=== PATIENT | female | born 1990 | race Caucasian/White ===

== ENCOUNTER 2016-11-17 12:08 | Emergency (ER) | payer OTHER ==
[~2016-11-17] VITALS: Ht 160 cm; Wt 60.0 kg
[~2016-11-17 12:08] MED LIST: BEN50 PO; FLUC150T41 PO; GENT30CR TOP; HYDR-3498 PO; NITR-58 PO; ONDA4TAB8 PO; PHEN-537 PO; PRED20TA PO; PREN1COM10 PO; TYL500 PO
[2016-11-17 12:19] VITALS: Ht 160 cm; Wt 60.0 kg
--- NOTE | 2016-11-17 13:08 | RADRPT ---
PROCEDURE: There is Save CLINICAL INDICATION: pain TECHNIQUE: AP, lateral and oblique views of the right wrist were performed. COMPARISON: No prior studies are available for comparison. FINDINGS: There is no evidence acute fractures or dislocations. The bony mineralization is normal. No focal bony blastic or lytic lesions. No erosions. The soft tissues are unremarkable. IMPRESSION: Negative right wrist series. RPTAT:AAJJ Physician Ariadne Date Time Electronically viewed and signed by Emma Casillas Physician on 11/17/2016 13:08 /
[2016-11-17] MEDS ORDERED: IBUP400T22 PO (13:13)
--- NOTE | 2016-11-17 13:17 | ERD ---
ER Documentation Chief Complaint Date/Time DATE: 11/17/16 TIME: 13:15 Chief Complaint rt wrist pain x 2 months HPI This 26-year-old female complains of pain in her right wrist for last 2 months. She denies any history of trauma. She does use her hands and wrists a lot at home. The pain is on the dorsum of her right thumb. She has no restricted range of motion weakness or redness or bleeding. ROS All systems reviewed and are negative except as per history of present illness. Medications Home Meds Active Scripts Ibuprofen* (Ibuprofen*) 400 Mg Tablet, 400 MG PO Q6H Y for PAIN, #20 TAB Prov:DIVYA DICKINSON MD 11/17/16 Ondansetron Hcl* (Zofran*) 4 Mg Tablet, 4 MG PO Q6H for NAUSEA AND/OR VOMITING, #30 TAB Prov:MILTON SOTELO 03/21/16 Acetaminophen* (Tylenol*) 500 Mg Tab, 1000 MG PO Q4H Y for PAIN AND OR ELEVATED TEMP for 3 Days, TAB Prov:MILTON SOTELO 03/21/16 Fluconazole* (Fluconazole*) 150 Mg Tablet, 150 MG PO ONCE, #1 TAB Prov:ALBERT STILL PA-C 11/27/15 Diphenhydramine Hcl* (Benadryl*) 50 Mg Cap, 50 MG PO Q6 Y for ITCHING, #30 CAP Prov:ALBERT STILL PA-C 11/27/15 Prednisone* (Prednisone*) 20 Mg Tab, 40 MG PO DAILY for 4 Days, TAB Prov:ALBERT STILL PA-C 11/27/15 Phenazopyridine Hcl* (Pyridium*) 100 Mg Tab, 100 MG PO TID Y for PAIN, #3 TAB Prov:KOFFI LIN I. LINK 11/22/15 Nitrofurantoin Monohyd Macrocr* (Macrobid*) 100 Mg Capsr, 100 MG PO BID for 5 Days, CAP Prov:KOFFI LIN I. TIME ANALYSIS CLERK 11/22/15 Gentamicin Sulfate* (Gentamicin Sulfate* Oint) 0.1% - 15 gm Oint, 1 APPLIC TOP QID for 7 Days, TUB OPTHO OINTMENT Prov:DIVYA DICKINSON MD 06/11/15 Hydrocodone Bit-Acetaminophen* ([place]*) 5-325 Mg Tab, 1 TAB PO Q6 Y for PAIN, # 7 TAB Prov:ISMAEL ALEJANDRE 04/26/15 Reported Medications Cmb#95/Iron/Fa/Dha ( + DHA COMBO PACK) 1 Each Combo..pkg, 1 EACH PO DAILY 12/28/12 Allergies Allergies: Coded Allergies: No Known Drug Allergies (Verified Allergy, Unknown, 11/22/15) PMhx/Soc History of Surgery: No Anesthesia Reaction: No Hx Neurological Disorder: No Hx Respiratory Disorders: No Hx Cardiac Disorders: No Hx Psychiatric Problems: No Hx Miscellaneous Medical Probl: No Hx Alcohol Use: No Hx Substance Use: No Hx Tobacco Use: No Physical Exam Vitals Vital Signs Date Time Temp Pulse Resp B/P Pulse Ox O2 Delivery O2 Flow Rate FiO2 11/17/16 12:19 98.1 85 18 108/58 98 Physical Exam Const: [] Alert, [id number] Head: Atraumatic Eyes: Normal Conjunctiva ENT: Normal External Ears, Nose and Mouth. Neck: Full range of motion..~ No meningismus. Resp: Clear to auscultation bilaterally Cardio: Regular rate and rhythm, no murmurs Abd: Soft, non tender, non distended. Normal bowel sounds Skin: No petechiae or rashes Back: No midline or flank tenderness Ext: No cyanosis, or edema. There is some tenderness in the base of the right thumb with a positive Cameron's test. There is no appreciable snuffbox tenderness no effusion, deformities, restricted range of motion weakness per Neur: Awake and alert Psych: Normal Mood and Affect Procedures/MDM X-ray Wrist 3V Interpreted by me: Scaphoid: [Normal] Bones: [No fracture] Joints: [No dislocation] Foreign body: [None]. Impression-normal right wrist x-ray Patient has signs and symptoms of right thumb extensor tendinitis without evidence of fracture, dislocation, deficits, bacterial infection. Patient was placed in a right thumb spica splint. Splint Assessment: Neurovascularly intact post splint placement with good fit. Patient will be discharged home instructions for ice, and a prescription for ibuprofen. Patient was advised to follow-up with primary doctor, recommend use of splint for 2 weeks and follow- up with orthopedist for persistent pain. She may need authorization sedation from her primary doctor for orthopedist visit Departure Diagnosis: Primary Impression: Tendonitis Condition: Stable Patient Instructions: Tendonitis Additional Instructions: SARAH MATA. Examines normal hoy. Cheque otro vez con henson doctor primario en el proximo handley or regresa para mas o nueva simptomas. USE SPLIMNT PARA 2 SEMANAS. DIVYA DICKINSON MD Nov 17, 2016 13:17
[2016-11-17] MEDS ORDERED: TYL500 PO (13:32)
== END 2016-11-17 13:30 | disposition home or self-care (01) ==
LOC: FTE 12:08
DX: M77.8 Other enthesopathies, not elsewhere classified (principal)
CPT/HCPCS: 29130; 73110; Z7502

== ENCOUNTER 2017-06-25 16:11 | Emergency (ER) | payer OTHER ==
[~2017-06-25] VITALS: Wt 56.8 kg
[~2017-06-25 16:11] MED LIST changes: +IBUP400T22 PO
[2017-06-25] MEDS ORDERED: ONDANSETRON 4 MG INJ IV STA (17:43)
[2017-06-25] MEDS ORDERED: SOD CHLORIDE 0.9% 1,000 ML IV ONE (18:00)
[2017-06-25] MEDS ORDERED: SOD CHLORIDE 0.9% 100 ML ONE (19:29)
[2017-06-25] MEDS ORDERED: IOHEXOL 300MG/ML 150 ML BTL ONE (19:29)
--- NOTE | 2017-06-25 19:50 | ERD ---
ER Documentation Chief Complaint Chief Complaint N/V S/P ANTIBX HPI 27-year-old female presenting 4 days status post wisdom tooth removal complaining of nausea vomiting 3-4 hours. 10 episodes described as brown and nonbilious. Has not taken any medications to relieve the symptoms. Is taking acetaminophen with codeine and amoxicillin for the past 4 days with adequate relief of postop symptoms. Describes pharyngitis and dysphagia. Denies dyspnea , difficulty breathing, chest pain, headache, neck stiffness, fever, chills. No medical history. Patient has no other complaints and describes no other associated manifestations. ROS All systems reviewed and are negative except as per history of present illness. Medications Home Meds Active Scripts Acetaminophen* (Tylenol*) 500 Mg Tab, 500 MG PO Q4H Y for MILD PAIN LEVEL 1-3, # 20 TAB Prov:DIVYA DICKINSON MD 11/17/16 Ibuprofen* (Ibuprofen*) 400 Mg Tablet, 400 MG PO Q6H Y for PAIN, #20 TAB Prov:DIVYA DICKINSON MD 11/17/16 Ondansetron Hcl* (Zofran*) 4 Mg Tablet, 4 MG PO Q6H for NAUSEA AND/OR VOMITING, #30 TAB Prov:MILTON SOTELO 03/21/16 Acetaminophen* (Tylenol*) 500 Mg Tab, 1000 MG PO Q4H Y for PAIN AND OR ELEVATED TEMP for 3 Days, TAB Prov:MILTON STOELO 03/21/16 Fluconazole* (Fluconazole*) 150 Mg Tablet, 150 MG PO ONCE, #1 TAB Prov:ALBERT STILL PA-C 11/27/15 Diphenhydramine Hcl* (Benadryl*) 50 Mg Cap, 50 MG PO Q6 Y for ITCHING, #30 CAP Prov:ALBERT STILL PA-C 11/27/15 Prednisone* (Prednisone*) 20 Mg Tab, 40 MG PO DAILY for 4 Days, TAB Prov:ALBERT STILL PA-C 11/27/15 Phenazopyridine Hcl* (Pyridium*) 100 Mg Tab, 100 MG PO TID Y for PAIN, #3 TAB Prov:KOFFI LIN NP 11/22/15 Nitrofurantoin Monohyd Macrocr* (Macrobid*) 100 Mg Capsr, 100 MG PO BID for 5 Days, CAP Prov:LINKOFFI LAGUNAS NP 11/22/15 Gentamicin Sulfate* (Gentamicin Sulfate* Oint) 0.1% - 15 gm Oint, 1 APPLIC TOP QID for 7 Days, TUB OPTHO OINTMENT Prov:DIVYA DICKINSON MD 06/11/15 Hydrocodone Bit-Acetaminophen* ([place]*) 5-325 Mg Tab, 1 TAB PO Q6 Y for PAIN, # 7 TAB Prov:ISMAEL ALEJANDRE 04/26/15 Reported Medications Cmb#95/Iron/Fa/Dha ( + DHA COMBO PACK) 1 Each Combo..pkg, 1 EACH PO DAILY 12/28/12 Allergies Allergies: Coded Allergies: No Known Drug Allergies (Verified Allergy, Unknown, 11/22/15) PMhx/Soc Medical and Surgical Hx: pt denies Medical Hx History of Surgery: Yes (WIDSOM TEETH 2017) Anesthesia Reaction: No Hx Neurological Disorder: No Hx Respiratory Disorders: No Hx Cardiac Disorders: No Hx Psychiatric Problems: No Hx Miscellaneous Medical Probl: No Hx Alcohol Use: No Hx Substance Use: No Hx Tobacco Use: No Smoking Status: Never smoker Physical Exam Vitals Vital Signs Date Time Temp Pulse Resp B/P Pulse Ox O2 Delivery O2 Flow Rate FiO2 06/25/17 16:13 99.6 108 20 124/73 100 Physical Exam Const: Well-appearing 27-year-old female in no acute distress Head: Atraumatic Eyes: Normal Conjunctiva. PERRLA, EOMI bilaterally. There is no nystagmus, or jaundice. ENT: Trismus. Oropharynx not well visualized. Neck: Full range of motion..~ No meningismus. Resp: Clear to auscultation bilaterally Cardio: Regular rate and rhythm, no murmurs. Cap refill less than 2 seconds. Abd: Soft, non tender, non distended. Normal bowel sounds. No McBurney's point tenderness. Negative Madison sign. Skin: No petechiae or rashes Back: No midline or flank tenderness Ext: No cyanosis, or edema Neur: Awake and alert Psych: Normal Mood and Affect Result Diagram: 06/25/17180406/25/17 180 Results 24 hrs Laboratory Tests Test 06/25/17 18:00 06/25/17 18:05 Urine Color YELLOW Urine Clarity CLEAR Urine pH 7.0 Urine Specific [place] 1.020 Urine Ketones 2+mg/dL Urine Nitrite NEGATIVEmg/dL Urine Bilirubin NEGATIVEmg/dL Urine Urobilinogen 2+mg/dL Urine Leukocyte Esterase NEGATIVELeu/ul Urine Hemoglobin NEGATIVEmg/dL Urine Glucose NEGATIVEmg/dL Urine Total Protein NEGATIVEmg/dl Urine Test NEGATIVE White Blood Count 8.910^3/ul Red Blood Count 4.6310^6/ul Hemoglobin 13.0g/dl Hematocrit 39.7% Mean Corpuscular Volume 85.7fl Mean Corpuscular Hemoglobin 28.1pg Mean Corpuscular Hemoglobin Concent 32.7g/dl Red Cell Distribution Width 13.2% Platelet Count 62784^3/UL Mean Platelet Volume 9.3fl Neutrophils % 80.3% Lymphocytes % 13.1% Monocytes % 4.5% Eosinophils % 1.5% Basophils % 0.2% Nucleated Red Blood Cells % 0.0/100WBC Neutrophils # 7.210^3/ul Lymphocytes # 1.210^3/ul Monocytes # 0.410^3/ul Eosinophils # 0.110^3/ul Basophils # 0.010^3/ul Nucleated Red Blood Cells # 0.010^3/ul Prothrombin Time 13.9Sec Prothrombin Time Ratio 1.1 INR International Normalized Ratio 1.07 Activated Partial Thromboplast Time 31.5Sec Sodium Level 141mmol/L Potassium Level 4.3mmol/L Chloride Level 103mmol/L Carbon Dioxide Level 26mmol/L Anion Gap 16 Blood Urea Nitrogen 8mg/dl Creatinine 0.55mg/dl Glucose Level 87mg/dl Calcium Level 9.0mg/dl Total Bilirubin 0.5mg/dl Direct Bilirubin 0.00mg/dl Indirect Bilirubin 0.5mg/dl Aspartate Amino Transf (AST/SGOT) 173IU/L Alanine Aminotransferase (ALT/SGPT) 357IU/L Alkaline Phosphatase 181IU/L Total Protein 7.7g/dl Albumin 4.7g/dl Globulin 3.00g/dl Albumin/Globulin Ratio 1.56 Current Medications Medications (Trade) Dose Ordered Sig/Mnae Route PRN Reason Start Time Stop Time Status Last Admin Dose Admin Sodium Chloride (NS) 1,000 ml @ 1,000 mls/hr Q1H ONCE IV 06/25/17 18:00 06/25/17 18:59 DC 11/8/17 18:37 Ondansetron HCl (Zofran Inj) 4 mg ONCE STAT IV 06/25/17 17:43 06/25/17 17:44 DC 06/25/17 18:37 IV Flush 10 ml 10 ml STK-MED ONCE .ROUTE 06/25/17 19:29 06/25/17 19:30 DC 06/25/17 19:33 Sodium Chloride (NS) 100 ml @ ud STK-MED ONCE .ROUTE 06/25/17 19:29 06/25/17 19:30 DC 06/25/17 19:33 Iohexol (Omnipaque 300mg/ ml) 150 ml STK-MED ONCE .ROUTE 06/25/17 19:29 06/25/17 19:30 DC 06/25/17 19:33 Procedures/MDM 27-year-old female presenting with a chief complaints of pharyngitis nausea and vomiting 4 days status post wisdom tooth removal. Denies fever or chills. Labs were obtained. Labs revealed increased liver enzymes. No leukocytosis. I have spoken to my attending about this case Dr. Gutierrez. Ultrasound and CT have been ordered. This case will be handed off to CHAPIN Pham. Departure Diagnosis: Primary Impression: Nausea and vomiting Additional Instructions: Is being handed off to CHAPIN Pham MICHAEL PA-C Jun 25, 2017 19:50
[2017-06-25] MEDS ORDERED: ONDA4TAB14 PO (19:51)
--- NOTE | 2017-06-25 20:04 | RADRPT ---
PROCEDURE: US Abdomen. CLINICAL INDICATION: Abdominal pain. Nausea and vomiting. History of cholecystectomy. TECHNIQUE: Multiple real-time images were acquired of the patient's right upper quadrant utilizing a high resolution transducer. The images were reviewed on a high-resolution PACS workstation. COMPARISON: 04/26/2015 FINDINGS: The liver demonstrates increased echogenicity and size and no focal lesions are seen. The liver kahlil ures 17.5 cm in size. The gallbladder has been removed. No common bile duct dilatation is seen. No intrahepatic biliary dilatation is seen. The common bile duct measures 2.3 mm in maximal dimension . The visualized portions of the pancreas are unremarkable. No free fluid is identified. The right kidney is of normal size, and demonstrate normal echogenicity and morphology. The right k idney measures cm. There are is no dilatation of the right collecting system. There are no perine phric fluid collections. There are no areas of increased echogenicity to suggest nephrolithiasis. IMPRESSION: 1. Fatty infiltration of the liver. 2. Gallbladder not identified consistent with the clinical history of a prior cholecystectomy. RPTAT: HPNM Physician Amina Date Time Electronically viewed and signed by Physician Amina on 06/25/2017 20:04 /
--- NOTE | 2017-06-25 20:08 | RADRPT ---
PROCEDURE: CT Neck with contrast. CLINICAL INDICATION: Dysphasia. TECHNIQUE: The study was performed utilizing a multislice multidetector CT scanner. Direct spiral 1 mm axial sections were obtained through the neck with the use of with the use of intravenous contr ast material. 80 cc of Omnipaque-300 was utilized without complication. 1 or more of the following dose reduction techniques were utilized: Automated exposure control, adjustment of the mA and/or kV according to patient's size, iterative reconstruction technique. Coronal and sagittal reformations were obtained. The images were reviewed on a PACS workstation. RADIATION DOSE: CTDIvol: 9.3 mGyDLP: AP 224.5 mGy-cm COMPARISON: No prior studies are available for comparison. FINDINGS: The nasopharynx, oropharynx and hypopharynx are normal in appearance. There is no tongue base mass. The larynx is normal in appearance. The parotid, submandibular and thyroid glands are normal in a ppearance. There is mild prominence of the bilateral palatine tonsils. There is no evidence of hypo enhancing fluid collection. No enlarged cervical lymph nodes are seen. The vascular structures are normal. The paranasal sinuses and orbits are normal. Limited visualization of the intracranial con tents is unremarkable. There are mild degenerative changes of the cervical spine. The lung apices are normal in appearance. IMPRESSION: 1. Mild prominence of the bilateral volt AP, flows, suggestive of tonsillitis. No evidence of hypo e nhancing fluid collection to suggest peritonsillar abscess at this time. 2. Otherwise, normal CT of the neck soft tissues. No mass lesion, lymphadenopathy or abnormal fluid collection. RPTAT: HGAS .Conor Olsen MD, Date Time Electronically viewed and signed by .Conor Olsen MD, on 06/25/2017 20:08 .S/
[2017-06-25] MEDS ORDERED: AMOX1TAB9 PO (20:20)
[2017-06-25 20:29] VITALS: BP 107/61; PULSE 78; RESP 18; TEMP 98.2
== END 2017-06-25 20:30 | disposition home or self-care (01) ==
LOC: FTE 16:11
DX: R11.2 Nausea with vomiting, unspecified (principal); R10.9 Unspecified abdominal pain
CPT/HCPCS: 70491; 76705; 80053; 81003; 84703; 85025; 85610; 85730; 96374; J2405; J7030; Q9967; Z7502; Z7610

== ENCOUNTER 2018-01-13 14:19 | Emergency (ER) | END 2018-01-13 17:26 | disposition home or self-care (01) ==

== ENCOUNTER 2018-02-10 20:39 | Emergency (ER) | END 2018-02-10 23:39 | disposition home or self-care (01) ==

== ENCOUNTER 2018-09-08 15:53 | Inpatient (IN) | payer OTHER ==
[~2018-09-08] VITALS: Ht 157.5 cm; Wt 75.7 kg
[~2018-09-08 15:53] MED LIST changes: +ACET500C5 PO; +AMOX1TAB9 PO; +FAMO-96 PO; +IBUP-1541 PO; +IBUP-1542 PO; -IBUP400T22 PO; +ONDA4TAB14 PO
[2018-09-08 16:00] VITALS: Ht 157.5 cm; Wt 75.7 kg
[2018-09-08] MEDS ORDERED: LEVO112T57 PO (16:26)
[2018-09-08] MEDS ORDERED: URSO300C3 PO (16:26)
--- NOTE | 2018-09-08 17:33 | PN ---
Triage Information Date/Time September 08, 2018 Reason for visit: Sent in from clinic for body itching and possible cholestasis, also complains of uterine tightening Weeks of Gestation 36 /Para Date of 4 para 3 Diabetes: none Hypertention: none Objective Vital signs are stable Heart Rate: 140's Heart Rate Comments Reactive Contractions: < 5 Minutes Apart Exam Cervix appeared to be short and closed Results/Medications Result Diagram: 09/08/18 1616 Results 24 hrs Laboratory Tests Test 09/08/18 16:16 Sodium Level 134 L Potassium Level 3.7 Chloride Level 103 Carbon Dioxide Level 22 Anion Gap 9 Blood Urea Nitrogen 7 Creatinine 0.54 Est Glomerular Filtrat Rate mL/min > 60 Glucose Level 118 Calcium Level 9.0 Total Bilirubin 0.2 Direct Bilirubin 0.00 Indirect Bilirubin 0.2 Aspartate Amino Transf (AST/SGOT) 23 Alanine Aminotransferase (ALT/SGPT) 20 Alkaline Phosphatase 152 H Total Protein 6.4 Albumin 3.4 Globulin 3.00 Albumin/Globulin Ratio 1.13 Imaging Results Normal biophysical profile. Assessment/Plan Patient received 1 dose of subcutaneous terbutaline for uterine contractions Does not have elevated enzymes Bile acids are drawn Patient is going to receive steroids Will follow patient closely and evaluate patient following day for contractions and receiving the second dose of betamethasone SHIRLENE RUIZ MD Sep 08, 2018 17:33
[2018-09-08] MEDS ORDERED: TERBUTALINE 1 ML ONE (17:46)
[2018-09-08] MEDS ORDERED: LACTATED RINGER'S 1,000 ML IV ONE (18:00)
[2018-09-08] MEDS ORDERED: TERBUTALINE 1 MG/ML INJ SC ONE ×2 (18:00→20:30)
[2018-09-08] MEDS ORDERED: BETAMET NA PHOS/AC(6 MG/ML) 2 ML INJ SYG IM ONE (18:30)
[2018-09-08] MEDS: LACTATED RINGER'S 1,000 ML IV SCH ×2 (19:13→22:56)
[2018-09-08] MEDS ORDERED: LACTATED RINGER'S 1,000 ML IV PRN (22:27)
[2018-09-08] MEDS ORDERED: OXYTOCIN 30 UNITS/LR 500 ML IV PRN (22:30)
[2018-09-08] MEDS ORDERED: OXYTOCIN 30 UNITS/LR 500 ML IV SCH ×2 (22:30)
[2018-09-08] MEDS ORDERED: IBUPROFEN 600 MG TAB PO PRN (22:30)
[2018-09-08] MEDS ORDERED: METHYLERGONOVINE 0.2 MG INJ IM PRN (22:30)
[2018-09-08] MEDS ORDERED: MISOPROSTOL 200 MCG TAB PR PRN (22:30)
[2018-09-08] MEDS ORDERED: LIDOCAINE 1% (MPF) 30 ML INJ INJ PRN (22:30)
[2018-09-08] MEDS ORDERED: BUTORPHANOL 2 MG INJ IV PRN (22:30)
[2018-09-08] MEDS ORDERED: CARBOPROST 250 MCG INJ IM PRN (22:30)
[2018-09-08] MEDS: NIFEdipine 10 MG CAP PO SCH (23:59)
[2018-09-09] MEDS: NIFEdipine 10 MG CAP PO SCH ×3 (06:13→18:10)
[2018-09-09] MEDS: LACTATED RINGER'S 1,000 ML IV SCH ×2 (07:10→16:06)
[2018-09-09] MEDS ORDERED: LEVOTHYROXINE 112 MCG TAB PO SCH (07:30)
--- NOTE | 2018-09-09 07:35 | TRIAGE ---
OB Triage Datetime Report Generated by CPN: 09/09/2018 07:35 Datetime: 09/09/2018 07:00 Stage of : Labor Labor Evaluation Frequency: Irregular Monitor Mode: External Duration (sec)2399: 40-60 Quality: Mild Pattern: Normal: <= 5 Contractions in 10 Minutes Resting Tone [place]: Relaxed Heart Rate FHR Baseline Rate: 135 Monitor Mode: External US FHR Baseline Changes: No Baseline Change Variability: Moderate 6-25 bpm Accelerations: 15X15 Decelerations: None Category: Category I Datetime: 09/09/2018 06:00 Stage of : Labor Labor Evaluation Frequency: Irregular Monitor Mode: External Duration (sec)2399: 40-110 Quality: Mild Pattern: Normal: <= 5 Contractions in 10 Minutes Resting Tone [place]: Relaxed Heart Rate FHR Baseline Rate: 135 Monitor Mode: External US FHR Baseline Changes: No Baseline Change Variability: Moderate 6-25 bpm Accelerations: 15X15 Decelerations: None Category: Category I Datetime: 09/09/2018 05:00 Stage of : Labor Labor Evaluation Frequency: Irregular Monitor Mode: External Duration (sec)2399: 40-90 Quality: Mild Pattern: Normal: <= 5 Contractions in 10 Minutes Resting Tone [place]: Relaxed Heart Rate FHR Baseline Rate: 135 Monitor Mode: External US Variability: Moderate 6-25 bpm Accelerations: 15X15 Decelerations: None Category: Category I Datetime: 09/09/2018 04:00 Stage of : Labor Labor Evaluation Frequency: Irregular Monitor Mode: External Duration (sec)2399: 40-150 Quality: Mild Pattern: Normal: <= 5 Contractions in 10 Minutes Resting Tone [place]: Relaxed Heart Rate FHR Baseline Rate: 140 Monitor Mode: External US Variability: Moderate 6-25 bpm Accelerations: 15X15 Decelerations: None Category: Category I Datetime: 09/09/2018 03:00 Stage of : Labor Labor Evaluation Frequency: Irregular Monitor Mode: External Duration (sec)2399: 40-170 Quality: Mild Pattern: Normal: <= 5 Contractions in 10 Minutes Resting Tone [place]: Relaxed Heart Rate FHR Baseline Rate: 150 Monitor Mode: External US Variability: Moderate 6-25 bpm Accelerations: 15X15 Decelerations: None Category: Category I Datetime: 09/09/2018 02:00 Stage of : Labor Labor Evaluation Frequency: Irregular Monitor Mode: External Duration (sec)2399: 40-60 Quality: Mild Pattern: Normal: <= 5 Contractions in 10 Minutes Resting Tone [place]: Relaxed Heart Rate FHR Baseline Rate: 155 Monitor Mode: External US Variability: Moderate 6-25 bpm Accelerations: 15X15 Datetime: 09/09/2018 01:00 Stage of : Labor Labor Evaluation Frequency: Irregular Monitor Mode: External Duration (sec)2399: 40-70 Quality: Mild Pattern: Normal: <= 5 Contractions in 10 Minutes Resting Tone [place]: Relaxed Heart Rate FHR Baseline Rate: 150 Monitor Mode: External US FHR Baseline Changes: No Baseline Change Variability: Moderate 6-25 bpm Accelerations: 15X15 Datetime: 09/09/2018 00:00 Stage of : Labor Labor Evaluation Frequency: Irregular Monitor Mode: External Duration (sec)2399: 40-90 Quality: Mild Pattern: Normal: <= 5 Contractions in 10 Minutes Resting Tone [place]: Relaxed Heart Rate FHR Baseline Rate: 150 Monitor Mode: External US FHR Baseline Changes: No Baseline Change Variability: Moderate 6-25 bpm Accelerations: 15X15 Decelerations: None Category: Category I Datetime: 09/08/2018 23:00 Stage of : Labor Labor Evaluation Frequency: 1.5-5 Monitor Mode: External Duration (sec)2399: 40-90 Quality: Mild Pattern: Normal: <= 5 Contractions in 10 Minutes Resting Tone [place]: Relaxed Heart Rate FHR Baseline Rate: 150 Monitor Mode: External US FHR Baseline Changes: No Baseline Change Variability: Moderate 6-25 bpm Accelerations: 15X15 Decelerations: None Category: Category I Datetime: 09/08/2018 22:00 Stage of : OB Triage Labor Evaluation Frequency: Irregular Monitor Mode: External Duration (sec)2399: 40-100 Quality: Mild Pattern: Normal: <= 5 Contractions in 10 Minutes Resting Tone [place]: Relaxed Heart Rate FHR Baseline Rate: 150 Monitor Mode: External US Variability: Moderate 6-25 bpm Accelerations: 15X15 Decelerations: None Category: Category I Datetime: 09/08/2018 21:41 Monitor Mode: Palpation Resting Tone [place]: Relaxed Datetime: 09/08/2018 21:40 Stage of : OB Triage Vaginal Exam Dilatation (cms): 1.5 Effacement (%): 50 Station: -3 Exam By: MIGUEL Decker Vaginal Bleeding: None Cervix, Consistency: Soft Cervix, Position: Posterior Presentation 'A': Cephalic Datetime: 09/08/2018 21:00 Stage of : OB Triage Labor Evaluation Frequency: Irregular Monitor Mode: External Duration (sec)2399: 50-100 Quality: Mild Pattern: Normal: <= 5 Contractions in 10 Minutes Resting Tone [place]: Relaxed Heart Rate FHR Baseline Rate: 145 Monitor Mode: External US Variability: Moderate 6-25 bpm Accelerations: 15X15 Decelerations: None Category: Category I Datetime: 09/08/2018 20:00 Stage of : OB Triage Labor Evaluation Frequency: x6 Monitor Mode: External Duration (sec)2399: 60-120 Quality: Mild Pattern: Normal: <= 5 Contractions in 10 Minutes Resting Tone [place]: Relaxed Heart Rate FHR Baseline Rate: 140 Monitor Mode: External US Variability: Moderate 6-25 bpm Accelerations: 15X15 Decelerations: Variable Category: Category II Datetime: 09/08/2018 19:13 Stage of : OB Triage Temperature Route: Oral Pain Assessment Pain Scale: 2 Pain Presence: Intermittent Pain Type: Cramping; Pressure Pain Location: Abdomen Pain Relief Measures: Comfort Measures Datetime: 09/08/2018 19:03 Assessment Type: Triage Maternal Assessment Level of Consciousness: Fully Conscious DTR's/Clonus: DTRs 2+; No Clonus Headache: Denies Blurred Vision: No Respiratory Effort: Unlabored; Regular Rhythm; Equal Expansion Breath Sounds, Left: Clear and Equal Breath Sounds, Right: Clear and Equal Nausea/Vomiting: Denies RUQ Epigastric Pain: Denies Lower Extremities Edema: None Degree: None Upper Extremities Edema: None Degree: None Facial Edema: None Fall Risk Assessment History of Falling: (0) No Secondary Diagnosis: (0) No Ambulatory Aid: (0) Bedrest/Nurse Assist IV Therapy: (0) No Gait: (0) Normal/Bedrest/Immobile Mental Status: (0) Oriented to Own Ability Fall Score: 0 Fall Risk Score Definition: No Risk: No action required Datetime: 09/08/2018 18:28 Labor Evaluation Frequency: 5-6.5 Monitor Mode: External Duration (sec)2399: 60-100 Quality: Mild Pattern: Normal: <= 5 Contractions in 10 Minutes Resting Tone [place]: Relaxed Heart Rate FHR Baseline Rate: 130 Monitor Mode: External US FHR Baseline Changes: No Baseline Change Variability: Moderate 6-25 bpm Accelerations: 15X15 Decelerations: None Category: Category I Pain Presence: None/Denies Datetime: 09/08/2018 17:40 Vaginal Exam Dilatation (cms): 1.0 Effacement (%): 40 Station: -3 Exam By: TM Membrane Status: Intact Datetime: 09/08/2018 17:30 Labor Evaluation Frequency: 5-7 Monitor Mode: External Duration (sec)2399: 60-120 Quality: Mild Pattern: Normal: <= 5 Contractions in 10 Minutes Resting Tone [place]: Relaxed Heart Rate FHR Baseline Rate: 135 Monitor Mode: External US FHR Baseline Changes: No Baseline Change Variability: Moderate 6-25 bpm Accelerations: 15X15 Decelerations: None Category: Category I Pain Presence: None/Denies Datetime: 09/08/2018 16:35 Labor Evaluation Frequency: 4-5 Monitor Mode: External Duration (sec)2399: 60-90 Quality: Mild Pattern: Normal: <= 5 Contractions in 10 Minutes Resting Tone [place]: Relaxed Heart Rate FHR Baseline Rate: 135 Monitor Mode: External US FHR Baseline Changes: No Baseline Change Variability: Moderate 6-25 bpm Accelerations: 15X15 Decelerations: None Category: Category I Pain Presence: None/Denies Pain Assessment Comments: Pt states she feels some tightening with UC but denies pain Datetime: 09/08/2018 16:29 Temperature Route: Oral Datetime: 09/08/2018 16:07 Time of Arrival: 09/08/2018 15:45 EGA: 36.0 Arrived By: Ambulatory Arrived From: Dr. Lopez Chief Complaint: Itching Movement: Present Contractions: Occasional Rupture of Membranes: Denies Vaginal Bleeding: Normal Show Vaginal Discharge: Denies Recent Sexual Intercouse: Yes Abdominal Trauma: Not Applicable Patient Complaints: Other Time Provider Notified: 09/08/2018 17:25 Provider Notified: Initial Plan: CMP, NST, BPP, Terb 0.25mg subQ x1, IV hydration, Beta 12mg IM once Datetime: 09/08/2018 16:05 Assessment Type: Triage Maternal Assessment Level of Consciousness: Fully Conscious DTR's/Clonus: DTRs 2+; No Clonus Headache: Denies Blurred Vision: No Respiratory Effort: Unlabored; Regular Rhythm; Equal Expansion Breath Sounds, Left: Clear and Equal Breath Sounds, Right: Clear and Equal Nausea/Vomiting: Denies RUQ Epigastric Pain: Denies Lower Extremities Edema: None Degree: None Upper Extremities Edema: None Degree: None Facial Edema: None Fall Risk Assessment History of Falling: (0) No Secondary Diagnosis: (0) No Ambulatory Aid: (0) Bedrest/Nurse Assist IV Therapy: (0) No Gait: (0) Normal/Bedrest/Immobile Mental Status: (0) Oriented to Own Ability Fall Score: 0 Fall Risk Score Definition: No Risk: No action required Datetime: 09/08/2018 15:58 Stage of : OB Triage
[2018-09-09] MEDS ORDERED: ACETAMINOPHEN 325 MG TAB ONE (11:54)
[2018-09-09] MEDS ORDERED: ACETAMINOPHEN 325 MG TAB PO ONE (12:00)
[2018-09-09] MEDS ORDERED: URSODIOL 300 MG CAP PO SCH (15:30)
--- NOTE | 2018-09-09 17:37 | HP ---
Date/Time of Note Date/Time of Note DATE: 09/09/18 TIME: 17:35 OB - History Hx of Present Free Text/Dictation 28-year-old female 4 para 3 at 3536 weeks gestation sent in from clinic for body itching She was noticed to have uterine contractions and was kept in for observation Estimated Due Date: Oct 12, 2018 : 4 Para: 3 Care: Good Care Ultrasounds: Normal mid trimester US Obstetrical Complications: Other (Possible cholestasis, contractions) Past Family/Social History * Past Medical, Surgical, Family and Obstetric Histories reviewed from chart. Blood Type: O+ Rubella: immune RPR/VDRL: Negative GBS Status: Unknown HBsAG: Negative OB Admission Exam Physical Exam HEENT: WNL Heart: Rhythm Normal Lungs: Clear, Equal Abdomen: WNL Extremities: Normal Reflexes: Normal Cervical Dilatation: Fingertip Effacement: 0% Station: -3 Membranes: Intact Heart Rate: 140's Accelerations: Accelerations Present Decelerations: No Decelerations Varibility: Marked Contractions on Admission: < 5 Minutes Apart Date/Time Contractions Began: ? Frequency of Contractions: ? Duration: ? Intensity: Mild Last 72 hours Lab Results CBC & BMP 09/08/18 16:16 09/09/18 00:47 Liver Function Test 09/08/18 16:16 Alanine Aminotransferase (ALT/SGPT) 20 Albumin 3.4 Alkaline Phosphatase 152 H Aspartate Amino Transf (AST/SGOT) 23 Direct Bilirubin 0.00 Total Protein 6.4 OB Assessment/Plan Reason for admission: labor Other Assessment: Possible cholestasis 35/36 weeks gestation Other plan: Patient was kept in for observation on p.o. nifedipine SHIRLENE RUIZ MD Sep 09, 2018 17:37
--- NOTE | 2018-09-09 17:40 | DS ---
Date/Time of Note Date/Time of Note DC home on bed and pelvic rest until delivery Follow-up with OB triage in 2 days for antepartum testing DATE: 09/09/18 TIME: 17:37 Obstetrical Discharge Record Final Diagnosis Final Diagnosis: not delivered Other Final Diagnosis contractions and possible cholestasis Complications Labor, Other (Possible cholestasis) Tocolytics: Terbutaline, Other (Nifedipine) Condition on Discharge Physical Assessment Last Vitals: See nurse's note Voiding: Yes Bowel Movement: Yes Breast: Soft, non-tender, Filling Fundus: Other () Abdomen and Incision: Abdomen is soft with present bowel sounds, abdomen is gravid fundal height 36 heart tones are reactive Episiotomy: Not applicable Calf Tenderness: No Patient Condition: Good (Over 24-hour course of observation patient did not have cervical change on p.o. nifedipinem ) SHIRLENE RUIZ MD Sep 09, 2018 17:40
--- NOTE | 2018-09-09 17:43 | PD.PPDC ---
HIDE OR SKIN BUFFER Discharge Instruction Provider Information Physician Information 28-year-old female admitted for contractions Originally was sent in for antepartum testing because of body itching Diagnosis [id number] Final Diagnosis: Erfcw0i contractions Condition [id number] Patient Condition: Hbbdo5v Good (Over 24-hour course of observation patient did not have cervical change on p.o. nifedipinem ) Diet Iweso2Gg Diet: Kwpho3d Resume Regular Diet Activity/Restrictions Dieaw1Fg Activity: Ufwco2z Bedrest May Shower [id number] Restrictions: Lvqxd1y No Exercising No Lifting Nothing in the Vagina Follow-up Follow-up with Physician: 2, Day/Days (In OB triage for antepartum testing) Return to clinic for Comment: Refer back to OB triage for antepartum testing in 2 days Obtain bile acid results SHIRLENE RUIZ MD Sep 09, 2018 17:43
[2018-09-09] MEDS ORDERED: URSO300C21 PO (17:45)
[2018-09-09] MEDS ORDERED: NIFEdipine PO (17:45)
[2018-09-09] MEDS ORDERED: BETAMET NA PHOS/AC(6 MG/ML) 2 ML INJ SYG IM ONE (18:00)
[2018-09-10] MEDS ORDERED: LEVOTHYROXINE 112 MCG TAB PO SCH (06:00)
[2018-09-19] MEDS ORDERED: LEVO112T42 PO (13:10)
[2018-09-19] MEDS ORDERED: IBUP-1542 PO (13:10)
== END 2018-09-09 18:20 | disposition home or self-care (01) | DRG 833 ==
LOC: OBT 15:53 → L-D 15:55 → OBT 22:21
PROVIDERS: ADMIT Obstetrics & Gynecology; ATTEND Obstetrics & Gynecology
DX: O47.1 False labor at or after 37 completed weeks of gestation (principal); Z3A.36 36 weeks gestation of pregnancy
CPT/HCPCS: 36415; 76818; 80053; 81001; 83789; 85025; 85610; 85730; 86592; 86850; 86900; 86901; 87086; 87340; 96360; 96361; 96372; G0463; J0702; J3105; J7120

== ENCOUNTER 2018-09-10 19:58 | Outpatient (CLI) | payer OTHER ==
[~2018-09-10] VITALS: Ht 157.5 cm; Wt 77.3 kg
[~2018-09-10 19:58] MED LIST changes: -ACET500C5 PO; -AMOX1TAB9 PO; -BEN50 PO; -FAMO-96 PO; -FLUC150T41 PO; -GENT30CR TOP; -HYDR-3498 PO; -IBUP-1541 PO; -IBUP-1542 PO; +LEVO112T57 PO; +NIFEdipine PO; -NITR-58 PO; -ONDA4TAB14 PO; -ONDA4TAB8 PO; -PHEN-537 PO; -PRED20TA PO; +URSO300C21 PO; +URSO300C3 PO
[2018-09-10 20:21] VITALS: BP 101/57; PULSE 88; RESP 18
[2018-09-10] MEDS ORDERED: AL HYDROX/MG HYDROX/SIMETH 30 ML CUP PO ONE (20:30)
--- NOTE | 2018-09-10 21:55 | PN ---
Triage Information Date/Time 09/10/18 Reason for visit: DFM Weeks of Gestation 36w2d /Para A2 Diabetes: none Hypertention: none Additional information was admitted for evaluation for possible cholestasis for 3days discharged home yesterday ,suppose to follow up in am but here with DFM had x2 bmz ,placed on ursordil 300mg TID AST and ALT nl today no c/o itching Objective Vital Signs Date Temp Pulse Resp B/P (MAP) Pulse Ox O2 O2 Flow FiO2 Time Delivery Rate 09/10/18 98.7 88 18 101/57 Room Air 20:21 (72) Heart Rate: 140's Heart Rate Comments CAT I Results/Medications Results 24 hrs Laboratory Tests Test 09/10/18 19:55 Urine Color YELLOW Urine Clarity CLEAR Urine pH 7.0 Urine Specific [place] 1.011 Urine Ketones NEGATIVE Urine Nitrite NEGATIVE Urine Bilirubin NEGATIVE Urine Urobilinogen NEGATIVE Urine Leukocyte Esterase NEGATIVE Urine Hemoglobin NEGATIVE Urine Glucose NEGATIVE Urine Total Protein NEGATIVE Imaging Results BPP 8/8 SAIDA 20.6 Disposition: Discharge Assessment/Plan A IUP 36w2d cholestasis borderline polyhydramnios DFM P RTO 2days for f/u SAIDA and antepartum test MEHDI SY MD Sep 10, 2018 21:54
--- NOTE | 2018-09-10 22:51 | TRIAGE ---
OB Triage Datetime Report Generated by CPN: 09/10/2018 22:51 Datetime: 09/10/2018 21:15 Stage of : OB Triage Monitor Mode: External Quality: Mild Pattern: Normal: <= 5 Contractions in 10 Minutes Resting Tone [place]: Relaxed FHR Baseline Rate: 140 Monitor Mode: External US FHR Baseline Changes: No Baseline Change Variability: Moderate 6-25 bpm Accelerations: 15X15 Decelerations: None Category: Category I Datetime: 09/10/2018 20:25 Time of Arrival: 09/10/2018 19:47 EGA: 36.2 Arrived By: Ambulatory Arrived From: Home Chief Complaint: w/ hx PTL and poss cholestasis presents w/ c/o DFM since 1529 Movement: Decreased Contractions: Denies/Absent Rupture of Membranes: Denies Vaginal Bleeding: None Vaginal Discharge: Denies Recent Sexual Intercouse: Denies Abdominal Trauma: Not Applicable Patient Complaints: Other Time Provider Notified: 09/10/2018 20:20 Provider Notified: Dr Flores Initial Plan: EFM,BPP,UA,URINE CULTURE Datetime: 09/10/2018 20:20 Stage of : OB Triage Monitor Mode: External Quality: Mild Pattern: Normal: <= 5 Contractions in 10 Minutes Resting Tone [place]: Relaxed FHR Baseline Rate: 145 Monitor Mode: External US FHR Baseline Changes: No Baseline Change Variability: Moderate 6-25 bpm Accelerations: 15X15 Decelerations: None Category: Category I Comments: Pt states baby now active Pain Scale: 0 Pain Presence: None/Denies Pain Type: N/A Datetime: 09/10/2018 20:01 Stage of : OB Triage Level of Consciousness: Fully Conscious Headache: Denies Blurred Vision: No Nausea/Vomiting: Denies RUQ Epigastric Pain: Denies Facial Edema: None Monitor Mode: External Resting Tone [place]: Relaxed FHR Baseline Rate: 150 Monitor Mode: External US Pain Scale: 0 Pain Presence: None/Denies Pain Type: N/A Datetime: 09/09/2018 18:19 Frequency: occas Monitor Mode: External Duration (sec)2399: 60-130 Quality: Mild Pattern: Normal: <= 5 Contractions in 10 Minutes Resting Tone [place]: Relaxed FHR Baseline Rate: 140 Monitor Mode: External US FHR Baseline Changes: No Baseline Change Variability: Moderate 6-25 bpm Accelerations: 15X15 Decelerations: None Category: Category I Datetime: 09/09/2018 16:59 Frequency: occas Monitor Mode: External Duration (sec)2399: 50-70 Quality: Mild Pattern: Normal: <= 5 Contractions in 10 Minutes Resting Tone [place]: Relaxed FHR Baseline Rate: 145 Monitor Mode: External US FHR Baseline Changes: No Baseline Change Variability: Moderate 6-25 bpm Accelerations: 15X15 Decelerations: None Category: Category I Datetime: 09/09/2018 16:00 Frequency: occas Monitor Mode: External Duration (sec)2399: 50-70 Quality: Mild Pattern: Normal: <= 5 Contractions in 10 Minutes Resting Tone [place]: Relaxed FHR Baseline Rate: 155 Monitor Mode: External US FHR Baseline Changes: No Baseline Change Variability: Moderate 6-25 bpm Accelerations: 15X15 Decelerations: None Category: Category I Datetime: 09/09/2018 15:00 Frequency: occas Monitor Mode: External Duration (sec)2399: 60-80 Quality: Mild Pattern: Normal: <= 5 Contractions in 10 Minutes Resting Tone [place]: Relaxed FHR Baseline Rate: 150 Monitor Mode: External US FHR Baseline Changes: No Baseline Change Variability: Moderate 6-25 bpm Accelerations: 15X15 Decelerations: None Category: Category I Datetime: 09/09/2018 14:00 Frequency: OCCAS Monitor Mode: External Duration (sec)2399: 50-140 Quality: Mild Pattern: Normal: <= 5 Contractions in 10 Minutes Resting Tone [place]: Relaxed FHR Baseline Rate: 145 Monitor Mode: External US FHR Baseline Changes: No Baseline Change Variability: Moderate 6-25 bpm Accelerations: 15X15 Decelerations: None Category: Category I Datetime: 09/09/2018 13:55 Frequency: OCCAS Monitor Mode: External Duration (sec)2399: 60-160 Quality: Mild Pattern: Normal: <= 5 Contractions in 10 Minutes Resting Tone [place]: Relaxed FHR Baseline Rate: 140 Monitor Mode: External US FHR Baseline Changes: No Baseline Change Variability: Moderate 6-25 bpm Accelerations: 15X15 Decelerations: None Category: Category I Datetime: 09/09/2018 13:01 Dilatation (cms): 1.0 Effacement (%): 30 Station: -3 Exam By: Casimiro FINN Datetime: 09/09/2018 13:00 Frequency: OCCAS Monitor Mode: External Duration (sec)2399: 50-120 Quality: Mild Pattern: Normal: <= 5 Contractions in 10 Minutes Resting Tone [place]: Relaxed FHR Baseline Rate: 145 Monitor Mode: External US FHR Baseline Changes: No Baseline Change Variability: Moderate 6-25 bpm Accelerations: 15X15 Decelerations: None Category: Category I Datetime: 09/09/2018 11:57 Frequency: irregular Monitor Mode: External Duration (sec)2399: 50-120 Quality: Mild Pattern: Normal: <= 5 Contractions in 10 Minutes Resting Tone [place]: Relaxed FHR Baseline Rate: 140 Monitor Mode: External US FHR Baseline Changes: No Baseline Change Variability: Moderate 6-25 bpm Accelerations: 15X15 Decelerations: None Category: Category I Datetime: 09/09/2018 11:04 Frequency: IRREGULAR Monitor Mode: External Duration (sec)2399: 50-130 Quality: Mild Pattern: Normal: <= 5 Contractions in 10 Minutes Resting Tone [place]: Relaxed FHR Baseline Rate: 140 Monitor Mode: External US FHR Baseline Changes: No Baseline Change Variability: Moderate 6-25 bpm Accelerations: 15X15 Decelerations: None Category: Category I Datetime: 09/09/2018 10:00 Frequency: IRREGULAR Monitor Mode: External Duration (sec)2399: 50-120 Quality: Mild Pattern: Normal: <= 5 Contractions in 10 Minutes Resting Tone [place]: Relaxed FHR Baseline Rate: 140 Monitor Mode: External US FHR Baseline Changes: No Baseline Change Variability: Moderate 6-25 bpm Accelerations: 15X15 Decelerations: None Category: Category I Datetime: 09/09/2018 08:59 Frequency: OCCAS Monitor Mode: External Duration (sec)2399: 50-110 Quality: Mild Pattern: Normal: <= 5 Contractions in 10 Minutes Resting Tone [place]: Relaxed FHR Baseline Rate: 135 Monitor Mode: External US FHR Baseline Changes: No Baseline Change Variability: Moderate 6-25 bpm Accelerations: 15X15 Decelerations: None Category: Category I Datetime: 09/09/2018 08:00 Frequency: occas Monitor Mode: External Duration (sec)2399: 50-110 Pattern: Normal: <= 5 Contractions in 10 Minutes Resting Tone [place]: Relaxed FHR Baseline Rate: 145 Monitor Mode: External US Variability: Moderate 6-25 bpm Accelerations: 15X15 Decelerations: None Category: Category I Datetime: 09/09/2018 07:41 Assessment Type: Ongoing Assessment Level of Consciousness: Fully Conscious DTR's/Clonus: DTRs 2+; No Clonus Headache: Denies Blurred Vision: No Respiratory Effort: Unlabored; Regular Rhythm; Equal Expansion Breath Sounds, Left: Clear and Equal Breath Sounds, Right: Clear and Equal Nausea/Vomiting: Denies RUQ Epigastric Pain: Denies Lower Extremities Edema: None Degree: None Upper Extremities Edema: None Degree: None Facial Edema: None History of Falling: (0) No Secondary Diagnosis: (0) No Ambulatory Aid: (0) Bedrest/Nurse Assist IV Therapy: (20) Yes Gait: (0) Normal/Bedrest/Immobile Mental Status: (0) Oriented to Own Ability Fall Score: 20 Fall Risk Score Definition: No Risk: No action required Datetime: 09/09/2018 06:13 Stage of : Labor Temperature Route: Oral Datetime: 09/08/2018 23:58 Stage of : Labor Datetime: 09/08/2018 23:17 Stage of : Labor Datetime: 09/08/2018 22:56 Assessment Type: Admission Assessment Vaginal Bleeding: None Level of Consciousness: Fully Conscious DTR's/Clonus: DTRs 2+; No Clonus Headache: Denies Blurred Vision: No Respiratory Effort: Unlabored; Regular Rhythm; Equal Expansion Breath Sounds, Left: Clear and Equal Breath Sounds, Right: Clear and Equal Nausea/Vomiting: Denies RUQ Epigastric Pain: Denies Lower Extremities Edema: None Degree: None Upper Extremities Edema: None Degree: None Facial Edema: None Temperature Route: Oral History of Falling: (0) No Secondary Diagnosis: (0) No Ambulatory Aid: (0) Bedrest/Nurse Assist IV Therapy: (0) No Gait: (0) Normal/Bedrest/Immobile Mental Status: (0) Oriented to Own Ability Fall Score: 0 Fall Risk Score Definition: No Risk: No action required Membrane Status: Intact Datetime: 09/08/2018 22:42 Stage of : Labor Datetime: 09/08/2018 22:12 Stage of : OB Triage Datetime: 09/08/2018 21:42 Stage of : OB Triage Datetime: 09/08/2018 20:21 Stage of : OB Triage
[2018-09-19] MEDS ORDERED: IBUP-1542 PO (13:10)
[2018-09-19] MEDS ORDERED: LEVO112T42 PO (13:10)
== END 2018-09-10 21:43 | disposition home or self-care (01) ==
LOC: OBT 19:58 → L-D 19:58 → OBT 21:43
PROVIDERS: ATTEND Obstetrics & Gynecology
DX: O36.8130 Decreased fetal movements, third trimester, not applicable or unspecified (principal); Z3A.36 36 weeks gestation of pregnancy
CPT/HCPCS: 76818; 81003; 87086; Z7500; G0463

== ENCOUNTER 2018-09-12 13:12 | Outpatient (CLI) | payer OTHER ==
[~2018-09-12] VITALS: Ht 157.5 cm; Wt 76.8 kg
[~2018-09-12 13:12] MED LIST changes: +ACET500C5 PO; +AMOX1TAB9 PO; +BEN50 PO; +FAMO-96 PO; +FLUC150T41 PO; +GENT30CR TOP; +HYDR-3498 PO; +IBUP-1541 PO; +IBUP-1542 PO; +NITR-58 PO; +ONDA4TAB14 PO; +ONDA4TAB8 PO; +PHEN-537 PO; +PRED20TA PO
[2018-09-12 13:25] VITALS: BP 109/55; PULSE 90; RESP 20; Ht 157.5 cm; Wt 76.8 kg
--- NOTE | 2018-09-12 15:05 | PN ---
Triage Information Date/Time September 12, 2018 Reason for visit: Here for follow-up antepartum testing for possible cholestasis Weeks of Gestation 36 weeks and 4 days /Para 6 para 3 Diabetes: none Hypertention: none Additional information Hypothyroidism, possible cholestasis Objective Vital Signs Date Temp Pulse Resp B/P (MAP) Pulse Ox O2 O2 Flow FiO2 Time Delivery Rate 09/12/18 98.4 90 20 109/55 Room Air 13:25 (73) Heart Rate: 140's Heart Rate Comments Reactive Contractions: None Results/Medications Imaging Results Single intrauterine gestation. Biophysical profile 03/25 Disposition: Discharge Assessment/Plan Follow-up in 3 days for antepartum testing SHIRLENE RUIZ MD Sep 12, 2018 15:05
--- NOTE | 2018-09-12 15:23 | TRIAGE ---
OB Triage Datetime Report Generated by CPN: 09/12/2018 15:23 Datetime: 09/12/2018 14:50 Frequency: 8-11 Monitor Mode: External Duration (sec)2399: 70-90 Quality: Mild Pattern: Normal: <= 5 Contractions in 10 Minutes Resting Tone Brooten: Relaxed FHR Baseline Rate: 140 Monitor Mode: External US FHR Baseline Changes: No Baseline Change Variability: Moderate 6-25 bpm Accelerations: 15X15 Decelerations: None Category: Category I Pain Scale: 0 Pain Presence: None/Denies Pain Type: N/A Pain Goal: 0 Datetime: 09/12/2018 14:20 Frequency: X2 Monitor Mode: External Duration (sec)2399: 60-80 Quality: Mild Pattern: Normal: <= 5 Contractions in 10 Minutes Resting Tone Brooten: Relaxed FHR Baseline Rate: 140 Monitor Mode: External US FHR Baseline Changes: No Baseline Change Variability: Moderate 6-25 bpm Accelerations: 15X15 Decelerations: None Category: Category I Pain Scale: 0 Pain Presence: None/Denies Pain Type: N/A Pain Goal: 0 Datetime: 09/12/2018 13:50 Frequency: X3 Monitor Mode: External Duration (sec)2399: 60-80 Quality: Mild Pattern: Normal: <= 5 Contractions in 10 Minutes Resting Tone Brooten: Relaxed FHR Baseline Rate: 140 Monitor Mode: External US FHR Baseline Changes: No Baseline Change Variability: Moderate 6-25 bpm Accelerations: 15X15 Decelerations: None Category: Category I Pain Scale: 0 Pain Presence: None/Denies Pain Type: N/A Pain Goal: 0 Membrane Status: Intact Datetime: 09/12/2018 13:18 Stage of : OB Triage Time of Arrival: 09/12/2018 13:08 EGA: 36.4 Arrived By: Ambulatory Arrived From: Home Chief Complaint: FOLLOW UP POSSIBLE CHOLESTASIS Movement: Present Contractions: Denies/Absent Rupture of Membranes: Denies Vaginal Bleeding: None Vaginal Discharge: Denies Recent Sexual Intercouse: Denies Abdominal Trauma: Not Applicable Patient Complaints: None Time Provider Notified: 09/12/2018 15:07 Provider Notified: DR. JAMES Initial Plan: EFM Level of Consciousness: Fully Conscious DTR's/Clonus: DTRs 2+; No Clonus Headache: Denies Blurred Vision: No Respiratory Effort: Unlabored; Regular Rhythm; Equal Expansion Breath Sounds, Left: Clear and Equal Breath Sounds, Right: Clear and Equal Nausea/Vomiting: Denies RUQ Epigastric Pain: Denies Lower Extremities Edema: None Degree: None Upper Extremities Edema: None Degree: None Facial Edema: None Temperature Route: Axillary History of Falling: (0) No Secondary Diagnosis: (0) No Ambulatory Aid: (0) Bedrest/Nurse Assist IV Therapy: (0) No Gait: (0) Normal/Bedrest/Immobile Mental Status: (0) Oriented to Own Ability Fall Score: 0 Fall Risk Score Definition: No Risk: No action required Datetime: 09/10/2018 20:25 Additional Patient Complaints: Pt taking actigal TID and procardia 20 mg q6
[2018-09-19] MEDS ORDERED: LEVO112T42 PO (13:10)
[2018-09-19] MEDS ORDERED: IBUP-1542 PO (13:10)
== END 2018-09-12 15:15 | disposition home or self-care (01) ==
LOC: OBT 13:12 → L-D 13:12 → OBT 15:15
PROVIDERS: ATTEND Obstetrics & Gynecology
DX: O26.613 Liver and biliary tract disorders in pregnancy, third trimester (principal); K83.1 Obstruction of bile duct; O99.283 Endocrine, nutritional and metabolic diseases complicating pregnancy, third trimester; E03.9 Hypothyroidism, unspecified; Z3A.36 36 weeks gestation of pregnancy
CPT/HCPCS: 76818; Z7500; G0463